=== PATIENT | male | born 1975 | race African-American/Black ===

== ENCOUNTER 2024-11-21 02:34 | Emergency (ER) | payer OTHER ==
[~2024-11-21] VITALS: Ht 167.6 cm; Wt 117.9 kg
[2024-11-21] MEDS ORDERED: Ipratropium/Albuterol SulF 2.5-0.5MG/3 ML Amp INH ONE (02:50)
[2024-11-21 03:02] LABS: BASOPHILS ABSOLUTE AUTO 0.04 K/mm3 (0.00-0.23); BASOPHILS PERCENT AUTO 0 % (0-2); EOSINOPHILS ABSOLUTE AUTO 0.11 K/mm3 (0.00-0.68); EOSINOPHILS PERCENT AUTO 1 % (0-6); Hematocrit 51.3 % (37.0-53.0); Hemoglobin 16.0 g/dL (13.5-17.5); IMMATURE GRAN ABSOLUTE AUTO 0.02 K/mm3 (0.00-0.10); IMMATURE GRAN PERCENT AUTO 0 % (0-1); LYMPHOCYTES ABSOLUTE AUTO 2.27 K/mm3 (0.84-5.20); LYMPHOCYTES PERCENT AUTO 24 % (21-46); MONOCYTES ABSOLUTE AUTO 0.72 K/mm3 (0.16-1.47); MONOCYTES PERCENT AUTO 8 % (4-13); Mean Corpuscular HGB Conc 31.2 g/dL (31.5-36.5); Mean Corpuscular Volume 99 fL (80-100); NEUTROPHILS ABSOLUTE AUTO 6.45 K/mm3 (1.96-9.15); NEUTROPHILS PERCENT AUTO 67 % (41-73); NRBC ABSOLUTE 0.00 K/mm3 (0.00-0.02); NRBC Auto 0.0 /100 WBC (0.0-0.2); Platelet Count 201 K/mm3 (150-400); RDW Coefficient Variation 11.7 % (11.7-14.2); RDW Standard Deviation 43.2 fL (35.1-46.3)
[2024-11-21 03:19] LABS: Alanine Aminotransfer (ALT/SGP 31.0 U/L (12-78); Albumin, Blood 3.9 g/dL (3.4-5.0); Albumin/Globulin Ratio 1.0 (0.8-1.8); Anion Gap 6.0 mmol/L (3-11); Aspartate Aminotrans (AST/SGOT 25.0 U/L (12-37); Bilirubin, Total 0.4 mg/dL (0.1-1.0); Blood Urea Nitrogen 10.0 mg/dL (8-24); CO2, Blood 33.0 mmol/L (21-32); Calcium, Blood 9.1 mg/dL (8.5-10.1); Chloride, Blood 104.0 mmol/L (98-108); Creatinine, Blood 0.84 mg/dL (0.60-1.20); Globulin, Blood 3.8 g/dL (2.2-4.0); Glucose, Blood 165.0 mg/dL (70-99); Magnesium, Blood 2.3 mg/dL (1.6-2.4); Potassium, Blood 4.5 mmol/L (3.5-5.5); Sodium, Blood 138.0 mmol/L (136-145); Total Protein, Blood 7.7 g/dL (6.4-8.2)
[2024-11-21] MEDS ORDERED: Albuterol 2.5 MG/3 ML VIAL INH SCH (03:50)
[2024-11-21] MEDS ORDERED: RX Prepack Albuterol 1 PREPACK/6.7 GM INH UD ONE (05:15)
[2024-11-21] MEDS ORDERED: METPRE4DP PO (05:18)
[2024-11-21] MEDS ORDERED: LOSARTAN-HCTZ1 EACH PO (05:18)
== END 2024-11-21 05:25 | disposition home or self-care (01) ==
LOC: ER 02:34
PROVIDERS: Student in an Organized Health Care Education/Training Program
DX: J45.901 Unspecified asthma with (acute) exacerbation (principal); I10 Essential (primary) hypertension; Z91.148 Patient's other noncompliance with medication regimen for other reason; Z88.0 Allergy status to penicillin
CPT/HCPCS: 71045; 80053; 83735; 83880; 85025; 93005; 93010; 96374; 99285-25; A9270; J2919

== ENCOUNTER 2024-12-31 10:49 | Emergency (ER) | payer OTHER ==
[~2024-12-31] VITALS: Ht 167.6 cm; Wt 117.9 kg
[~2024-12-31 10:49] MED LIST: LOSARTAN-HCTZ1 EACH PO; METPRE4DP PO
[2024-12-31] MEDS ORDERED: Losartan/HCTZ 50-12.5 TAB PO ONE (11:10)
[2024-12-31] MEDS ORDERED: Voltaren100 GM TOP (12:17)
== END 2024-12-31 12:23 | disposition home or self-care (01) ==
LOC: ER 10:49
DX: M65.4 Radial styloid tenosynovitis [de Quervain] (principal); M79.644 Pain in right finger(s); I10 Essential (primary) hypertension; J45.909 Unspecified asthma, uncomplicated; F17.200 Nicotine dependence, unspecified, uncomplicated; Z88.0 Allergy status to penicillin; Z79.899 Other long term (current) drug therapy
CPT/HCPCS: 73130; 99283-25; A9270

== ENCOUNTER 2025-01-21 09:28 | Emergency (ER) | payer OTHER ==
[~2025-01-21] VITALS: Ht 167.6 cm; Wt 127.0 kg
[~2025-01-21 09:28] MED LIST changes: +Voltaren100 GM TOP
[2025-01-21] MEDS ORDERED: Robaxin750 MG PO (10:33)
[2025-01-21] MEDS ORDERED: Voltaren100 GM TOP (10:33)
== END 2025-01-21 10:36 | disposition home or self-care (01) ==
LOC: ER 09:28
DX: S76.012A Strain of muscle, fascia and tendon of left hip, initial encounter (principal); X58.XXXA Exposure to other specified factors, initial encounter; I10 Essential (primary) hypertension; J45.909 Unspecified asthma, uncomplicated; Z88.0 Allergy status to penicillin
CPT/HCPCS: 99282; A9270